=== PATIENT | male | born 1995 | race Hispanic/Latino ===

== ENCOUNTER 2017-10-20 16:20 | Emergency (ER) | payer OTHER ==
[2017-10-20 16:47] LABS: #Eosinphils 0.1 thou/uL (0.0-0.7); #Lymphocytes 1.6 thou/uL (1.20-3.40); #Monocytes 0.6 thou/uL (0.11-0.59); %Basophils 0.5 % (0.0-1.0); %Eosinophils 0.8 % (0.0-10.0); %Lymphocytes 21.8 % (21.0-51.0); %Monocytes 7.9 % (0.0-10.0); %Neutrophils 68.9 % (42.0-75.0); Hemoglobin 15.6 g/dL (14.0-18.0); Mean Corpuscular HGB CONC 32.8 g/dL (32.0-36.0); Mean Corpuscular Hemoglobin 26.4 pg (27.0-31.0); Mean Corpuscular Volume 80.5 fl (80.0-94.0); Mean Platelet Volume 7.8 fL (7.4-10.4); Platelet Count 255 thou/uL (130-400); RBC Distribution Width 15.9 % (11.5-14.5); Red Blood Cell (RBC) Count 5.89 mill/uL (4.70-6.10); White Blood Cell (WBC) Count 7.3 thou/uL (4.8-10.8)
[2017-10-20 17:09] LABS: ALT (SGPT) 20 U/L (8-55); AST (SGOT) 23 U/L (5-34); Alkaline Phosphatase 81 U/L (40-150); Anion Gap 13 mmol/L (10-20); BUN (Urea Nitrogen) 8 mg/dL (8.9-20.6); Bilirubin, Total 0.5 mg/dL (0.2-1.2); Calc. Creatinine Clearance 0 mL/min (70-130); Calcium 9.2 mg/dL (7.8-10.44); Carbon Dioxide 25 mmol/L (22-29); Chloride 102 mmol/L (98-107); Estimated GFR-MDRD Greater than 90; Globulin 4.8 g/dL (2.4-3.5); Glucose 95 mg/dL (70-105); Potassium 3.5 mmol/L (3.5-5.1); Protein, Total 8.8 g/dL (6.0-8.3); Sodium 136 mmol/L (136-145)
[2017-10-20 18:59] LABS: HIV (1/2) Antibody/Antigen Reflxed Confirmation (NonReactive); HIV 1/2 INDEX 372.63 S/CO (<1.00)
[2017-10-24 09:12] LABS: HIV 1 Antibody Multi-Spot Positive (Negative); HIV 2 Antibody Multi-Spot Negative (Negative)
== END 2017-10-20 21:20 | disposition home or self-care (01) ==
LOC: ERS 16:20
DX: R19.7 Diarrhea, unspecified (principal)
CPT/HCPCS: 36415; 80053; 85025; 86701; 86702; 87389; 99284

== ENCOUNTER 2019-11-13 06:25 | Outpatient (CLI) | payer OTHER ==
[2019-11-13 16:07] LABS: #Lymphocytes 1.3 thou/uL (1.20-3.40); #Monocytes 0.4 thou/uL (0.11-0.59); #Neutrophils 2.4 thou/uL (1.40-6.50); %Basophils 0.3 % (0.0-1.0); %Eosinophils 0.7 % (0.0-10.0); %Lymphocytes 31.3 % (21.0-51.0); %Monocytes 8.8 % (0.0-10.0); Hemoglobin 15.1 g/dL (14.0-18.0); Mean Corpuscular HGB CONC 32.8 g/dL (32.0-36.0); Mean Corpuscular Hemoglobin 32.6 pg (27.0-31.0); Mean Corpuscular Volume 99.2 fL (78.0-98.0); Mean Platelet Volume 6.8 fL (7.4-10.4); Platelet Count 253 thou/uL (130-400); RBC Distribution Width 11.7 % (11.5-14.5); Red Blood Cell (RBC) Count 4.63 mill/uL (4.70-6.10); White Blood Cell (WBC) Count 4.1 thou/uL (4.8-10.8)
[2019-11-13 16:26] LABS: Anion Gap 9 mmol/L (10-20); BUN (Urea Nitrogen) 15 mg/dL (8.9-20.6); Calc. Creatinine Clearance 0 mL/min (70-130); Calcium 8.8 mg/dL (7.8-10.44); Carbon Dioxide 27 mmol/L (22-29); Chloride 110 mmol/L (98-107); Estimated GFR-MDRD Greater than 90; Glucose 118 mg/dL (70-105); Potassium 3.7 mmol/L (3.5-5.1); Sodium 142 mmol/L (136-145)
== END 2019-11-13 06:26 | disposition home or self-care (01) ==
LOC: LABBT 06:25
PROVIDERS: ATTEND Surgery
DX: Z01.812 Encounter for preprocedural laboratory examination (principal); A63.0 Anogenital (venereal) warts
CPT/HCPCS: 80048; 85025

== ENCOUNTER 2019-11-14 09:27 | Day surgery (SDC) | payer OTHER ==
[2019-11-13 15:00] VITALS: BMI 27.3
[2019-11-14] MEDS ORDERED: Ketorolac Tromethamine 30 MG/ML VIAL ONE (09:56)
[2019-11-14] MEDS ORDERED: metroNIDAZOLE 500 MG/100 ML BAG ONE (09:56)
[2019-11-14] MEDS ORDERED: Levofloxacin 500 mg/D5W 100 ml Premix Bag ONE (09:56)
[2019-11-14] MEDS ORDERED: Rocuronium Bromide 10 MG/ML (10ML VIAL) ONE (12:27)
[2019-11-14] MEDS ORDERED: Ondansetron PF 4 MG/2 ML Vial ONE (12:27)
[2019-11-14] MEDS ORDERED: Lidocaine 1% PF 5 ML VIAL ONE (12:27)
[2019-11-14] MEDS ORDERED: Dexamethasone 20 MG/5 ML VIAL ONE (12:27)
[2019-11-14] MEDS ORDERED: Glycopyrrolate 0.2 MG/ML 5 ML SYRINGE ONE (12:27)
[2019-11-14] MEDS ORDERED: PROPOFOL 200 MG/20 ML VIAL ONE (12:27)
[2019-11-14] MEDS ORDERED: Lidocaine 2% w/Epinephrine 1:200K 20 ML VIAL ONE (14:15)
[2019-11-14] MEDS ORDERED: EPINEPHrine 1 MG/ML AMP ONE (14:15)
[2019-11-14] MEDS ORDERED: Bupivacaine 0.25% HCL 30 ML VIAL ONE (14:15)
[2019-11-14] MEDS ORDERED: Fentanyl 100 MCG/2 ML VIAL ONE (14:33)
[2019-11-14] MEDS ORDERED: Bacitracin Zinc Ointment 30 gm TUBE ONE (15:47)
[2019-11-14] MEDS ORDERED: Lidocaine 2% Jelly 5 ML TUBE ONE (15:47)
--- NOTE | 2019-11-19 07:58 | OP ---
DATE OF PROCEDURE: 11/14/2019 PROCEDURE PERFORMED: Excision and fulguration of anal warts, anesthesia with anoscopy. PREOPERATIVE DIAGNOSIS: Anal warts. POSTOPERATIVE DIAGNOSIS: Anal warts. HISTORY OF PRESENT ILLNESS: Mr. 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 Recommendation was made to proceed with excision in the operating room under anesthesia due to the significant anal canal burden of disease. DESCRIPTION OF PROCEDURE: After informed consent was obtained and appropriate preoperative antibiotics administered, the patient was taken to the operating room. He was placed in supine position and general anesthesia was administered. He was placed in the lithotomy position and prepped and draped in standard sterile fashion. Four-quadrant anoscopy was carried out and multiple anal canal warts excised using electrocautery. There were some condylomatous looking areas above the dentate line, which were biopsied as well. These specimens were sent separately as rectal biopsy. Once the anal canal was cleared of all significant disease, attention was turned to the perianal skin and multiple additional condylomata were excised using electrocautery. Local anesthesia was infused circumferentially for postoperative pain control and hemostasis was verified. The wound was dressed with antibiotic ointment and gauze, and the patient was extubated and taken to Recovery in good condition. Estimated blood loss is minimal. There were no complications. SPECIMENS: Anal warts and rectal biopsy. Job ID: [id number]
== END 2019-11-14 17:30 | disposition home or self-care (01) ==
LOC: SDC 09:27
PROVIDERS: ATTEND Surgery
PROC: 0D5Q8ZZ Destruction of Anus, Via Natural or Artificial Opening Endoscopic (ICD-10-PCS; principal; 2019-11-14)
DX: A63.0 Anogenital (venereal) warts (principal); Z21 Asymptomatic human immunodeficiency virus [HIV] infection status; Z79.899 Other long term (current) drug therapy
CPT/HCPCS: 88305; J0171; J1100; J1885; J1956; J2001; J2405; J2704; J3010; S0020

== ENCOUNTER 2025-09-16 07:09 | Emergency (ER) | payer BC, OTHER ==
[2025-09-16 07:46] LABS: #Basophils 0.03 10x3/uL (0.0-0.2); #Eosinophils 0.13 10x3/uL (0.0-0.7); #Monocytes 0.65 10x3/uL (0.11-0.59); #Neutrophils 10.29 10x3/uL (1.40-6.50); %Basophils 0.3 % (0.0-1.0); %Eosinophils 1.1 % (0.0-10.0); %Lymphocytes 3.2 % (21.0-51.0); %Monocytes 5.7 % (0.0-10.0); %Neutrophils 89.5 % (42.0-75.0); Hematocrit 43.8 % (42.0-52.0); Hemoglobin 15.3 g/dL (14.0-18.0); Mean Corpuscular Hemoglobin 32.8 pg (27.0-31.0); Mean Corpuscular Volume 93.8 fL (78.0-98.0); Platelet Count 192 10x3/uL (130-400); Red Blood Cell (RBC) Count 4.67 mill/uL (4.70-6.10); White Blood Cell (WBC) Count 11.49 10x3/uL (4.8-10.8)
[2025-09-16 08:09] LABS: ALT (SGPT) 34 U/L (Less than 45); AST (SGOT) 35 U/L (11-34); Albumin 4.2 g/dL (3.1-4.5); Alkaline Phosphatase 58 U/L (40-110); Anion Gap 11 mmol/L (10-20); BUN (Urea Nitrogen) 16 mg/dL (8.9-20.6); Bilirubin, Total 1.0 mg/dL (0.3-1.2); Calc. Creatinine Clearance 0 mL/min (70-130); Calcium 8.7 mg/dL (7.8-10.44); Carbon Dioxide 26 mmol/L (22-29); Chloride 110 mmol/L (98-107); Globulin 2.2 g/dL (2.4-3.5); Glucose 103 mg/dL (70-105); Lipase 43 U/L (8-78); Potassium 3.9 mmol/L (3.5-5.1); Sodium 143 mmol/L (136-145)
[2025-09-16 08:12] LABS: Bacteria/HPF None Seen HPF (None Seen); CAUTI Indications for Culture Dysuria,urgency,freq; Glucose, Urine (Dipstick) Normal (Negative); Leukocyte Negative Leu/uL (Negative); Protein, Urine (Dipstick) 10 mg/dL (Neg-Trace); RBC/HPF 0-3 HPF (0-3); WBC/HPF 0-3 HPF (0-3)
[2025-09-16 08:14] LABS: Specific Gravity, Urine Greater than 1.050 (1.002-1.036); Urine Culture Reflex No No
[2025-09-16] MEDS ORDERED: Iopamidol-370 76% 500 ML MDV (1 ML CHARGE) ONE (09:28)
[2025-09-16 13:53] LABS: Campy jejuni + coli by PCR Negative (Negative); STEC Shiga Toxin 1+2 Negative (Negative); Salmonella spp. by PCR Negative (Negative); Shigella spp + EIEC by PCR Negative (Negative)
== END 2025-09-16 09:34 | disposition home or self-care (01) ==
LOC: ERS 07:09
DX: A08.4 Viral intestinal infection, unspecified (principal); B20 Human immunodeficiency virus [HIV] disease
CPT/HCPCS: 71045; 74177; 80053; 81001; 83690; 84484; 85025; 87324; 87449; 87505; 93005; 96361; 96374